=== PATIENT | female | born 1980 | race Caucasian/White ===

== ENCOUNTER 2017-03-24 10:18 | Inpatient (IN) | payer BC ==
[2017-04-03] MEDS ORDERED: OXYTOCIN 10 UNIT/ML 1 ML VIAL IM PRN (06:25)
[2017-04-03] MEDS ORDERED: LIDOCAINE 1% (PF) 10 MG/ML (30 ML SDV) SQ PRN (06:25)
[2017-04-03] MEDS ORDERED: TERBUTALINE 1 MG/ML VIAL SQ PRN (06:25)
[2017-04-03] MEDS ORDERED: METHYLERGONOVINE 0.2 MG/ML 1 ML AMP IM PRN (06:25)
[2017-04-03] MEDS ORDERED: CARBOPROST TROMETHAMINE 250 MCG/ML 1 ML AMP IM PRN (06:25)
[2017-04-03] MEDS: LACTATED RINGERS 1,000 ML IV SCH ×3 (06:42→13:37)
[2017-04-03] MEDS: OXYTOCIN 20 UNITS/1000 ML NS 1,000 ML IV SCH ×2 (06:42→14:41)
[2017-04-03 06:51] LABS: Basophils % (A) 0 %; CH 31.2; CHCM 35.2; Eosinophils # (A) 0.1 k/uL (0-0.7); Eosinophils % (A) 1 %; HCT 37.5 % (34.0-46.0); HDW 2.98; HGB 13.2 gm/dL (11.4-16.0); Luc # (Auto) 0.23; Luc % (Auto) 3; Lymphocytes # (A) 1.7 k/uL (1.0-4.8); Lymphocytes % (A) 20 %; MCH 31.3 pg (25.0-35.0); MCHC 35.1 g/dL (31.0-37.0); MCV 89.1 fL (80.0-100.0); Mean Platelet Volume 8.9; Monocytes # (A) 0.4 k/uL (0-1.0); Monocytes % (A) 5 %; Neutrophils # (A) 6.1 k/uL (1.3-7.7); Neutrophils % (A) 72 %; RBC 4.21 m/uL (3.80-5.40); RDW 14.9 % (11.5-15.5); WBC 8.6 k/uL (3.8-10.6); WBC (Perox) 9.31
[2017-04-03 07:19] VITALS: BMI 28.3
--- NOTE | 2017-04-03 07:37 | P.HPOB ---
History of Present Illness H&P Date: 04/03/17 Is a 40-year-old white female 4 para 10/25/2002 EDC 03/24/2017 at 41-3/7 weeks ' gestation. Reason for induction for postdates with reasonably favorable multiparous cervix. Fetus is been active throughout the . She denies fluid leakage or vaginal bleeding. She is having irregular mild uterine contractions spontaneously. Past surgical history significant for section 2007, low transverse incision. Cholecystectomy, appendectomy. Her graft ALLERGIES none known. Family history significant for prostate cancer. Obstetric history significant for normal spontaneous vaginal deliveries 2, C- section in 2007, low transverse. history blood type is positive, rubella status immune. One-hour Glucola elevated, 3 hour GTT within normal limits. VDRL testing, urine culture , hepatitis B surface antigen, HIV testing all negative. Gonorrhea and chlamydia cultures negative. Current medications vitamins daily. On exam this is a pleasant white female, 5 foot 4 inches, 165 pounds, blood pressure 115/71. The general physical exam is within normal limits. The cervix is 3-4 cm dilated, 60-70% effaced, -2 station, vertex presentation, soft. Artificial amniorrhexis reveals clear fluid. heart rate is in the 140s with frequent accelerations consistent with reactive NST. Irregular mild uterine contractions are noted. Impression: Advanced maternal age, postdates , previous wishing . All signs this morning reassuring. Plan: Oxytocin per hospital protocol. Close maternal and surveillance. Anticipate vaginal after . Past Medical History Past Medical History: No Reported History History of Any Multi-Drug Resistant Organisms: None Reported Past Surgical History: Section Past Anesthesia/Blood Transfusion Reactions: No Reported Reaction Past Psychological History: No Psychological Hx Reported Smoking Status: Never smoker - Past Family History Father Family Medical History: Cancer Medications and Allergies Home Medications Medication Instructions Recorded Confirmed Type Cetirizine HCl [Zyrtec] 10 mg PO DAILY 03/28/17 04/03/17 History Pnv,Calcium 72/Iron/Folic Acid 1 tab PO DAILY 03/28/17 04/03/17 History [ Plus Tablet] Allergies Allergy/AdvReac Type Severity Reaction Status Date / Time No Known Allergies Allergy Verified 04/03/17 06:23 Exam - Vital Signs Vital signs: Vital Signs Temp Pulse Resp BP 04/03/17 06:22 96.7 F L 81 18 115/71 Intake and Output 04/02/17 04/03/17 04/03/17 22:59 06:59 14:59 Other: Weight 74.843 kg Results Result Diagrams: 04/03/17 06:35
[2017-04-03] MEDS ORDERED: SODIUM CHLORIDE 0.9% 100 ML BAG ONE (09:50)
[2017-04-03] MEDS ORDERED: fentaNYL (PF) 50 MCG/ML 5 ML AMP ONE (09:50)
[2017-04-03] MEDS ORDERED: BUPIVACAINE (PF) 0.25% 30 ML VIAL ONE (09:50)
[2017-04-03] MEDS ORDERED: BUPIVACAINE (PF) 0.25% 25 ML, fentaNYL (PF) 200 MCG in SODIUM CHLORIDE 0.9% 71 ML EPIDURAL ONE (10:06)
[2017-04-03] MEDS ORDERED: diphenhydrAMINE 25 MG CAP PO PRN (13:27)
[2017-04-03] MEDS ORDERED: BENZOCAINE/MENTHOL SPRAY 1 GM/SPRAY AEROSOL TOPICAL PRN (13:27)
[2017-04-03] MEDS ORDERED: ZOLPIDEM 5 MG TAB PO PRN (13:27)
[2017-04-03] MEDS ORDERED: HYDROCORTISONE 2.5% RECTAL CREAM 30 GM TUBE RECTAL PRN (13:27)
[2017-04-03] MEDS ORDERED: ACETAMINOPHEN TAB 325 MG TAB PO PRN (13:27)
[2017-04-03] MEDS ORDERED: WITCH HAZEL 1 EACH MED..PAD TOPICAL PRN (13:27)
[2017-04-03] MEDS ORDERED: diphenhydrAMINE 50 MG/ML 1 ML VIAL IVP PRN ×2 (13:27)
[2017-04-03] MEDS ORDERED: LANOLIN CREAM 5 GM TUBE TOPICAL PRN (13:27)
[2017-04-03] MEDS ORDERED: SIMETHICONE 80 MG CHEWABLE PO PRN (13:27)
[2017-04-03] MEDS ORDERED: diphenhydrAMINE 50 MG CAP PO PRN (13:27)
[2017-04-03] MEDS ORDERED: Acetaminophen-Codeine 300-30mg TAB PO PRN (13:27)
[2017-04-03] MEDS ORDERED: diphenhydrAMINE ELIXIR 25 MG/10 ML CUP PO PRN (13:27)
--- NOTE | 2017-04-03 13:27 | P.PROBDLV ---
Vaginal Delivery Note - . Vaginal Delivery Note: This is a 37-year-old white female 4 para 10/25/2002 EDC 03/24/2017 at 41-3/7 weeks' gestation. Patient presented for induction for postdates with favorable cervix. is essentially unremarkable, group B strep cultures negative, blood type O+, rubella status immune. Please see dictated history and physical for details. On admission patient was 3-4 cm dilated. Artificial amniorrhexis revealed clear fluid. Oxytocin was started and titrated per hospital protocol. She progressed well through the first stage of labor. She did have occasional type I decelerations, overall excellent variability noted. Epidural was requested and placed without issue. Patient was judged to be completely dilated at 1254 hrs. and began the second stage of labor at that time. She pushed quite successfully in the dorsal lithotomy position. The perineal body was prepped and draped in usual sterile fashion. Infant's head delivered occiput anterior and she restituted accordingly. With gentle downward traction, the anterior shoulder were infant' s left shoulder did not deliver easily. Therefore exaggerated Whitney maneuver was employed, along with suprapubic pressure per nursing staff. With this, the left or anterior shoulder gently delivered from underneath the pubic symphysis at which time the oropharynx, nasopharynx and external nares were all bulb suctioned on the perineal body. Patient was officially delivered of a liveborn female at 1304 hrs. Umbilical cord was doubly clamped and ligated, she was handed to waiting nurses for evaluation where scores of 9 and 9 at one and 5 minutes respectively were given. weighed 9 lbs. 9 oz. or 4350 g. The placenta delivered spontaneously, it was inspected and noted to be intact with trivascular cord at 1307 hrs. Inspection now of the cervix, vagina, perineum, periurethral and perirectal areas revealed a second-degree perineal laceration. This was repaired in the usual fashion using 3-0 Vicryl suture. All sponge needle and instrument counts are correct at the end of the procedure. Fundus is firm and in the midline, symmetric and 18 week size. Estimated blood loss 350 mL's. Patient and her family are allowed to begin the bonding experience in the LDR.
[2017-04-03] MEDS: SENNOSIDES-DOCUSATE SODIUM 1 EACH TAB PO SCH (19:33)
[2017-04-03] MEDS: IBUPROFEN 600 MG TAB PO PRN (20:23)
[2017-04-03 23:36] VITALS: PULSE 76
[2017-04-04] MEDS: IBUPROFEN 600 MG TAB PO PRN ×2 (01:52→11:45)
--- NOTE | 2017-04-04 07:50 | P.DS ---
Providers Date of admission: 04/03/17 06:10 Expected date of discharge: 04/04/17 Attending physician: Diane Camacho Primary care physician: Freya Rosas [facility] Course: This is a 36-year-old white female 4 para 10/25/2002 EDC 03/24/2017 at 41-3/7 weeks' gestation. Patient presented for induction for postdates with favorable multiparous cervix. Her history is significant for previous section, low transverse incision, choosing . Please see my dictated history and physical for details. Group B strep cultures negative, blood type O positive, rubella status immune. Artificial amniorrhexis revealed clear fluid. She requested and received an epidural. Oxytocin was started and titrated per hospital protocol. She went on to deliver a liveborn female with scores of 9 and 9 at one and 5 minutes respectively. Infant weighed 4350 g, or 9 lbs. 9 oz. There was a spontaneous second-degree midline laceration easily repaired. Estimated blood loss of 350 mL's. There was a mild shoulder dystocia that was alleviated quickly with Whitney maneuver and suprapubic pressure. Please see my dictated delivery note for details. This morning the patient is doing well. She is voiding, ambulating and passing flatus without difficulty. Vital signs are stable and she is afebrile. Fundus is firm and in the midline, symmetric and 18 week size. Extremities are negative for edema. Chest is clear in all arora. Extremities are negative for edema. Breasts are not engorged. Breast-feeding is going well. infant is doing well. Patient is being discharged home later today. She will follow-up with me in the office in 6 weeks. I have reminded her no intercourse, tampons or douching. She will use [id number] ibuprofen products as needed for pain, 200 mg pills, 3 every 6 hours as needed. I have reminded her to call me with any fevers shakes or chills, foul smelling or copious lochia, with the passage of large blood clots, with any pain not alleviated by [id number] products , or indeed with any concerns. Her options for contraception have been reviewed and we will discuss this further in the office. Patient Condition at Discharge: Good Plan - Discharge Summary New Discharge Prescriptions: No Action Pnv,Calcium 72/Iron/Folic Acid [ Plus Tablet] 1 tab PO DAILY Cetirizine HCl [Zyrtec] 10 mg PO DAILY Discharge Medication List Cetirizine HCl [Zyrtec] 10 mg PO DAILY 03/28/17 [History] Pnv,Calcium 72/Iron/Folic Acid [ Plus Tablet] 1 tab PO DAILY 03/28/17 [ History] Follow up Appointment(s)/Referral(s): Diane Camacho MD [STAFF PHYSICIAN] - 6 Weeks Discharge Disposition: HOME SELF-CARE
[2017-04-04] MEDS: SENNOSIDES-DOCUSATE SODIUM 1 EACH TAB PO SCH (09:16)
[2017-04-04 12:34] VITALS: BP 110/61; RESP 20; TEMP 97.6
== END 2017-04-04 14:30 | disposition home or self-care (01) | DRG 775 ==
LOC: 4FBP 04-03 06:10
PROVIDERS: ADMIT Obstetrics & Gynecology; ATTEND Obstetrics & Gynecology
PROC: 10E0XZZ Delivery of Products of Conception, External Approach (ICD-10-PCS; principal; 2017-04-03)
PROC: 0KQM0ZZ Repair Perineum Muscle, Open Approach (ICD-10-PCS; 2017-04-03)
PROC: 3E033VJ Introduction of Other Hormone into Peripheral Vein, Percutaneous Approach (ICD-10-PCS; 2017-04-03)
PROC: 10907ZC Drainage of Amniotic Fluid, Therapeutic from Products of Conception, Via Natural or Artificial Opening (ICD-10-PCS; 2017-04-03)
PROC: 3E0S3NZ Introduction of Analgesics, Hypnotics, Sedatives into Epidural Space, Percutaneous Approach (ICD-10-PCS; 2017-04-03)
DX: O48.0 Post-term pregnancy (principal); N85.8 Other specified noninflammatory disorders of uterus; O70.1 Second degree perineal laceration during delivery; Z37.0 Single live birth; O66.0 Obstructed labor due to shoulder dystocia; O34.211 Maternal care for low transverse scar from previous cesarean delivery; Z90.49 Acquired absence of other specified parts of digestive tract; Z3A.41 41 weeks gestation of pregnancy; Z80.42 Family history of malignant neoplasm of prostate; Z79.899 Other long term (current) drug therapy
CPT/HCPCS: 85025; 86850; 86900; 86901; 88307

== ENCOUNTER 2017-03-28 17:41 | Outpatient (CLI) | payer BC | END 2017-03-28 18:05 | disposition home or self-care (01) | LOC: FBPOP 17:41 | PROVIDERS: ATTEND Obstetrics & Gynecology | DX: O26.93 Pregnancy related conditions, unspecified, third trimester (principal); Z3A.40 40 weeks gestation of pregnancy | CPT/HCPCS: 59025; 99213 ==

== ENCOUNTER → 2019-09-09 | Outpatient (CLI) | payer BC | END | disposition home or self-care (01) | LOC: FBPOP 11:30 | PROVIDERS: ATTEND Obstetrics & Gynecology | DX: Z53.9 Procedure and treatment not carried out, unspecified reason (principal) ==

== ENCOUNTER 2019-09-30 06:00 | Inpatient (IN) | payer BC ==
[2019-09-30] MEDS ORDERED: LIDOCAINE 0.5% (PF) 5 MG/ML (50 ML SDV) SQ PRN (06:18)
[2019-09-30] MEDS ORDERED: METHYLERGONOVINE 0.2 MG/ML 1 ML AMP IM PRN (06:18)
[2019-09-30] MEDS ORDERED: OXYTOCIN 10 UNIT/ML 1 ML VIAL IM PRN (06:18)
[2019-09-30] MEDS ORDERED: TERBUTALINE 1 MG/ML VIAL SQ PRN (06:18)
[2019-09-30] MEDS ORDERED: CARBOPROST TROMETHAMINE 250 MCG/ML 1 ML AMP IM PRN (06:18)
[2019-09-30] MEDS ORDERED: OXYTOCIN 30 UNITS/500 ML NS 30 UNIT in SALINE 1 500ML.BAG IV SCH (06:30)
[2019-09-30 06:34] LABS: Basophils # (A) 0.1 k/uL (0-0.2); Basophils % (A) 1 %; Eosinophils # (A) 0.2 k/uL (0-0.7); Eosinophils % (A) 2 %; HCT 35.9 % (34.0-46.0); HGB 12.1 gm/dL (11.4-16.0); Lymphocytes # (A) 1.6 k/uL (1.0-4.8); Lymphocytes % (A) 15 %; MCH 29.5 pg (25.0-35.0); MCHC 33.6 g/dL (31.0-37.0); MCV 87.8 fL (80.0-100.0); Mean Platelet Volume 9.3; Monocytes # (A) 0.5 k/uL (0-1.0); Monocytes % (A) 5 %; Neutrophils # (A) 8.1 k/uL (1.3-7.7); Neutrophils % (A) 75 %; Platelet Count 199 k/uL (150-450); Poikilocytosis Slight; RBC 4.09 m/uL (3.80-5.40); RDW 13.2 % (11.5-15.5); WBC 10.8 k/uL (3.8-10.6)
[2019-09-30 06:35] VITALS: RESP 16
[2019-09-30] MEDS: LACTATED RINGERS 1,000 ML IV SCH ×2 (06:38→09:21)
--- NOTE | 2019-09-30 07:03 | P.HPOB ---
History of Present Illness H&P Date: 09/30/19 This is a 39-year-old white female 6 para 4014 EDC 10/03/2019 at 39-4/7 weeks' gestation. Patient presents today for induction with favorable multiparous cervix. Fetus is been active throughout the . She denies fluid leakage or vaginal bleeding. Social history is significant for negative tobacco alcohol or drug use. Patient is . Family history significant for prostate cancer. Obstetric history significant for section 2007, vaginal deliveries 3, most recently 2016. Past surgical history appendectomy 2007, to section 2007, cholecystectomy 2009. Current medications vitamins daily. ALLERGIES none known. Past medical history is unremarkable. history blood type is O+, rubella status immune. Hepatitis B surface antigen, HIV testing, urine culture, Pap smear, gonorrhea and chlamydia cultures, group strep cultures all negative. One-hour Glucola 96. On exam this is a pleasant white female who is 5 foot 4 inches, 173 pounds, vital signs are stable and patient is afebrile. The general physical exam is within normal limits. No peripheral edema. Cervix is 4 cm dilated, 70% effaced, -1 station, vertex presentation. Artificial amniorrhexis reveals clear fluid. heart rate is in the 130s with good overall variability. Rare mild uterine contractions are noted. Impression: 39-4/7 weeks intrauterine , here for elective induction of labor with favorable cervix and all signs reassuring. Plan: Close maternal and surveillance. Oxytocin per hospital protocol. Analgesic options have been reviewed with the patient. Anticipate normal spontaneous vaginal delivery, successful . Review of Systems Constitutional: Reports as per HPI Past Medical History Past Medical History: No Reported History History of Any Multi-Drug Resistant Organisms: None Reported Past Surgical History: Appendectomy, Section, Cholecystectomy Past Anesthesia/Blood Transfusion Reactions: No Reported Reaction Past Psychological History: No Psychological Hx Reported Smoking Status: Never smoker Past Alcohol Use History: None Reported Past Drug Use History: None Reported - Past Family History Father Family Medical History: Cancer Medications and Allergies Home Medications Medication Instructions Recorded Confirmed Type Pnv,Calcium 72/Iron/Folic Acid 1 tab PO DAILY 03/28/17 09/30/19 History [ Plus Tablet] Allergies Allergy/AdvReac Type Severity Reaction Status Date / Time No Known Allergies Allergy Verified 09/30/19 06:16 Exam Vital Signs Temp Pulse Resp BP Pulse Ox 09/30/19 06:28 96.4 F L 94 16 122/73 99 Intake and Output 09/29/19 09/29/19 09/30/19 14:59 22:59 06:59 Other: Weight 78.471 kg See dictation under HPI please Results Result Diagrams: 09/30/19 06:21 Abnormal Lab Results - Last 24 Hours (Table) 09/30/19 Range/Units 06:21 WBC 10.8 H (3.8-10.6) k/uL Neutrophils # 8.1 H (1.3-7.7) k/uL Assessment and Plan Assessment: 39-4/7 weeks intrauterine , here for elective induction of labor, all signs reassuring. Plan: Oxytocin per hospital protocol. Close maternal and surveillance. Anticipate normal spontaneous vaginal delivery. Time with Patient: Less than 30
[2019-09-30] MEDS ORDERED: LANOLIN CREAM 5 GM TUBE TOPICAL PRN (12:08)
[2019-09-30] MEDS ORDERED: diphenhydrAMINE 50 MG/ML 1 ML VIAL IVP PRN ×2 (12:08)
[2019-09-30] MEDS ORDERED: diphenhydrAMINE 50 MG CAP PO PRN (12:08)
[2019-09-30] MEDS ORDERED: diphenhydrAMINE 25 MG CAP PO PRN (12:08)
[2019-09-30] MEDS ORDERED: SIMETHICONE 80 MG CHEWABLE PO PRN (12:08)
[2019-09-30] MEDS ORDERED: WITCH HAZEL 1 EACH MED..PAD TOPICAL PRN (12:08)
[2019-09-30] MEDS ORDERED: ZOLPIDEM 5 MG TAB PO PRN (12:08)
[2019-09-30] MEDS ORDERED: BENZOCAINE/MENTHOL SPRAY 1 GM/SPRAY AEROSOL TOPICAL PRN (12:08)
[2019-09-30] MEDS ORDERED: ACETAMINOPHEN TAB 325 MG TAB PO PRN (12:08)
[2019-09-30] MEDS ORDERED: HYDROCORTISONE 2.5% RECTAL CREAM 30 GM TUBE RECTAL PRN (12:08)
--- NOTE | 2019-09-30 12:08 | P.PROBDLV ---
Vaginal Delivery Note - . Vaginal Delivery Note: This is a 39-year-old white female 6 para 4014 EDC 10/03/2019 at 39-4/7 weeks' gestation. Patient presented for induction with favorable multiparous cervix. is unremarkable, group B strep cultures negative, blood type O positive. Please see history and physical for details. Artificial amniorrhexis revealed clear fluid. Oxytocin was started and titrated per hospital protocol. Patient became uncomfortable and requested epidural, this was placed without difficulty per the anesthesia staff. Heart tones were reassuring throughout the entire first and second stages of labor. Patient was judged to be completely dilated at 1122 hours. Perineal body was prepped and draped in usual sterile fashion. With excellent expulsive efforts the infant's head delivered occiput anterior, there was an immediate "turtle sign" noted. For this reason, an exaggerated Whitney maneuver was employed along with suprapubic pressure. With gentle downward traction, the left or anterior shoulder still did not deliver. For this reason, delivery of the posterior shoulder was accomplished. Patient officially delivered a liveborn male infant at 1141 hours. Umbilical cord was doubly clamped and ligated, he was handed to waiting nurses for evaluation where scores of 8 and 9 at one and 5 minutes respectively were given. Placenta delivered spontaneously, it was inspected and noted to be intact with trivascular cord at 1145 hours. Inspection of the cervix, vagina, perineum, periurethral, and perirectal areas revealed a second-degree laceration. This was repaired in the usual fashion using 3-0 Vicryl suture for excellent reapproximation. Fundus is firm and in the midline, symmetric and 18 week size upon completion of delivery. Total estimate a blood loss 300 mL's. Infant weighed 9 lbs. 9 oz. or 4340 g. They are requesting circumcision further son.
[2019-09-30] MEDS ORDERED: OXYTOCIN 20 UNITS/1000 ML NS 1,000 ML IV SCH (12:15)
[2019-09-30] MEDS: IBUPROFEN 600 MG TAB PO PRN ×2 (12:20→23:05)
[2019-09-30] MEDS: SENNOSIDES-DOCUSATE SODIUM 1 EACH TAB PO SCH (20:27)
[2019-10-01 06:21] LABS: Basophils # (A) 0.1 k/uL (0-0.2); Basophils % (A) 1 %; Eosinophils # (A) 0.2 k/uL (0-0.7); Eosinophils % (A) 2 %; HCT 32.6 % (34.0-46.0); HGB 10.7 gm/dL (11.4-16.0); Lymphocytes # (A) 1.4 k/uL (1.0-4.8); Lymphocytes % (A) 13 %; MCH 29.1 pg (25.0-35.0); MCHC 32.7 g/dL (31.0-37.0); Mean Platelet Volume 9.5; Monocytes # (A) 0.4 k/uL (0-1.0); Monocytes % (A) 4 %; Neutrophils # (A) 8.9 k/uL (1.3-7.7); Neutrophils % (A) 79 %; Platelet Count 160 k/uL (150-450); Poikilocytosis Slight; RBC 3.66 m/uL (3.80-5.40); RDW 13.4 % (11.5-15.5); WBC 11.3 k/uL (3.8-10.6)
--- NOTE | 2019-10-01 07:50 | P.DS ---
Providers Date of admission: 09/30/19 06:09 Expected date of discharge: 10/01/19 Attending physician: Diane Camacho Primary care physician: Stated None Hospital Course: This is a 39-year-old white female 6 para 4014 EDC 10/03/2019 at 39-4/7 weeks' gestation. Patient presented for induction with favorable, multiparous cervix. unremarkable, rubella status immune, group B strep cultures negative, blood type O positive. Please see dictated history and physical for details. Patient was admitted, artificial amniorrhexis revealed clear fluid. Oxytocin augmentation was started. Epidural was placed per her request. She went on to deliver a liveborn male infant with scores of 8 and 9 at one and 5 minutes respectively. weighed 9 lbs. 9 oz., 4340 g. There was a mild shoulder dystocia encountered, please see my dictated delivery note for details. This morning the patient and her baby are both doing well. Circumcision has been performed. Patient is voiding, ambulating, passing flatus without diffi culty. Vital signs are stable and she is afebrile. Fundus is firm and in the midline, symmetric and 18 week size. Extremities are negative for edema. Perineal body is clean and dry, pain is well tolerated. Patient is being discharged home in excellent condition. She will follow-up with me in the office in 6 weeks. I have reminded her no intercourse, tampons or douching. She will use [id number] Advil or Aleve, or Motrin as needed for pain. She will call with any fevers shakes or chills, foul smelling or copious lochia, with the passage of large blood clots, with any pain not yojana viated by [id number] products, or indeed with any concerns. Patient Condition at Discharge: Good Plan - Discharge Summary New Discharge Prescriptions: No Action Pnv,Calcium 72/Iron/Folic Acid [ Plus Tablet] 1 tab PO DAILY Discharge Medication List Pnv,Calcium 72/Iron/Folic Acid [ Plus Tablet] 1 tab PO DAILY 03/28/17 [History] Follow up Appointment(s)/Referral(s): Diane Camacho MD [STAFF PHYSICIAN] - 6 Weeks Discharge Disposition: HOME SELF-CARE
[2019-10-01] MEDS: IBUPROFEN 600 MG TAB PO PRN (08:18)
[2019-10-01] MEDS: SENNOSIDES-DOCUSATE SODIUM 1 EACH TAB PO SCH (08:19)
[2019-10-01] MEDS ORDERED: ROPIVACAINE 100 MG, fentaNYL (PF) 200 MCG in SODIUM CHLORIDE 0.9% 76 ML EPIDURAL ONE (08:33)
[2019-10-01 08:49] VITALS: BP 118/66; PULSE 95; TEMP 97.9
== END 2019-10-01 12:30 | disposition home or self-care (01) | DRG 807 ==
LOC: 4FBP 06:09
PROVIDERS: ADMIT Obstetrics & Gynecology; ATTEND Obstetrics & Gynecology
PROC: 10E0XZZ Delivery of Products of Conception, External Approach (ICD-10-PCS; principal; 2019-09-30)
PROC: 0KQM0ZZ Repair Perineum Muscle, Open Approach (ICD-10-PCS; 2019-09-30)
PROC: 3E033VJ Introduction of Other Hormone into Peripheral Vein, Percutaneous Approach (ICD-10-PCS; 2019-09-30)
PROC: 10907ZC Drainage of Amniotic Fluid, Therapeutic from Products of Conception, Via Natural or Artificial Opening (ICD-10-PCS; 2019-09-30)
PROC: 00HU33Z Insertion of Infusion Device into Spinal Canal, Percutaneous Approach (ICD-10-PCS; 2019-09-30)
PROC: 3E0R3BZ Introduction of Anesthetic Agent into Spinal Canal, Percutaneous Approach (ICD-10-PCS; 2019-09-30)
DX: O34.211 Maternal care for low transverse scar from previous cesarean delivery (principal); Z37.0 Single live birth; O66.0 Obstructed labor due to shoulder dystocia; O70.1 Second degree perineal laceration during delivery; Z3A.39 39 weeks gestation of pregnancy; Z79.899 Other long term (current) drug therapy; Z90.49 Acquired absence of other specified parts of digestive tract; Z80.42 Family history of malignant neoplasm of prostate
CPT/HCPCS: 85025; 86850; 86900; 86901

== ENCOUNTER 2021-08-31 05:56 | Inpatient (IN) | payer BC ==
[2021-08-31] MEDS ORDERED: TERBUTALINE 1 MG/ML VIAL SQ PRN (06:11)
[2021-08-31] MEDS ORDERED: OXYTOCIN 10 UNIT/ML 1 ML VIAL IM PRN (06:11)
[2021-08-31] MEDS ORDERED: CARBOPROST TROMETHAMINE 250 MCG/ML 1 ML AMP IM PRN (06:11)
[2021-08-31] MEDS ORDERED: METHYLERGONOVINE 0.2 MG/ML 1 ML AMP IM PRN (06:11)
[2021-08-31] MEDS ORDERED: LIDOCAINE 0.5% (PF) 5 MG/ML (50 ML SDV) SQ PRN (06:11)
[2021-08-31] MEDS: LACTATED RINGERS 1,000 ML IV SCH ×2 (06:39→09:18)
[2021-08-31] MEDS: OXYTOCIN 30 UNITS/500 ML NS 30 UNIT in SALINE 1 500ML.BAG IV SCH ×3 (06:40→12:46)
[2021-08-31 06:42] LABS: Basophils # (A) 0.1 k/uL (0-0.2); Basophils % (A) 1 %; Eosinophils # (A) 0.2 k/uL (0-0.7); Eosinophils % (A) 2 %; HCT 34.8 % (34.0-46.0); HGB 11.9 gm/dL (11.4-16.0); Lymphocytes # (A) 1.6 k/uL (1.0-4.8); Lymphocytes % (A) 15 %; MCH 31.9 pg (25.0-35.0); MCHC 34.2 g/dL (31.0-37.0); MCV 93.1 fL (80.0-100.0); Mean Platelet Volume 8.4; Monocytes # (A) 0.5 k/uL (0-1.0); Monocytes % (A) 5 %; Neutrophils # (A) 8.1 k/uL (1.3-7.7); Neutrophils % (A) 76 %; Platelet Count 272 k/uL (150-450); Poikilocytosis Slight; RBC 3.74 m/uL (3.80-5.40); RDW 13.5 % (11.5-15.5); WBC 10.7 k/uL (3.8-10.6)
--- NOTE | 2021-08-31 08:06 | P.HPOB ---
History of Present Illness H&P Date: 08/31/21 Chief Complaint: She'll of labor with favorable multiparous cervix This is a 41-year-old female 7 para 5015 EDC 09/07/2021 at 39 weeks gestation. Patient presents with estimated weight greater than 97th percentile, history of macrosomia, history of shoulder dystocia, history of previous section and successful . Planning this morning. She is having mild uterine contractions, denies fluid leakage or vaginal bleeding. Past medical history is unremarkable. Past surgical history section 2007, cholecystectomy 2009, appendectomy 2007. Current medications baby aspirin daily, vitamin daily. ALLERGIES none known. Family history significant for prostate cancer. Obstetric history significant for vaginal delivery of 8 lbs. 8 oz. , 8 lbs. 5 oz. , section of 6 lbs. 5 oz. for vaginal bleeding and complete placenta previa. at 42 weeks' 9 lbs. 9 oz. infant as well as at 39 weeks' 9 lbs. 9 oz. infant. Social history patient is , she is never been a smoker, she denies alcohol or drug use. Obstetric history blood type is O+, rubella status immune. VDRL testing, urine culture, hepatitis B surface antigen, HIV testing, gonorrhea and chlamydia cultures, group B strep cultures all negative. One-hour Glucola 97. On exam patient is 5 foot 4 inches, 171 pounds, blood pressure 115/85. General physical exam is within normal limits. Extremities reveal no edema. heart rate is consistent with reactive NST. Cervix is 4 cm dilated, 60-70% effaced, -2 station, vertex presentation. Artificial amniorrhexis reveals clear fluid. Impression: Advanced maternal age, 39 week , history of macrosomia with sonographic evidence of the same, previous section planning . All signs reassuring. Plan: Oxytocin per hospital protocol. Analgesic options reviewed. Close maternal and surveillance. Anticipate normal spontaneous vaginal delivery. Review of Systems Constitutional: Reports as per HPI Past Medical History Past Medical History: No Reported History History of Any Multi-Drug Resistant Organisms: None Reported Past Surgical History: Appendectomy, Section, Cholecystectomy Past Anesthesia/Blood Transfusion Reactions: No Reported Reaction Past Psychological History: No Psychological Hx Reported Smoking Status: Never smoker Past Alcohol Use History: None Reported Past Drug Use History: None Reported - Past Family History Father Family Medical History: Cancer Medications and Allergies Home Medications Medication Instructions Recorded Confirmed Type Pnv,Calcium 72/Iron/Folic Acid 1 tab PO DAILY 03/28/17 08/31/21 History [ Plus Tablet] Aspirin 1 tab PO DAILY 08/31/21 08/31/21 History Allergies Allergy/AdvReac Type Severity Reaction Status Date / Time No Known Allergies Allergy Verified 08/31/21 06:07 Exam Vital Signs Temp Pulse Resp BP Pulse Ox 08/31/21 06:20 96.6 F L 104 H 16 115/85 98 Intake and Output 08/30/21 08/31/21 08/31/21 22:59 06:59 14:59 Intake Total 1.5 Balance 1.5 Intake: Intake, IV Titration 1.5 Amount Oxytocin 30 Units/500 ml 1.5 Ns 30 unit In Saline 1 500ml.bag @ Per Protocol IV .Q0M EDGARDO Rx#:[id number] Other: Weight 77.564 kg See dictation under HPI please Results Result Diagrams: 08/31/21 06:09 Abnormal Lab Results - Last 24 Hours (Table) 08/31/21 Range/Units 06:09 WBC 10.7 H (3.8-10.6) k/uL RBC 3.74 L (3.80-5.40) m/uL Neutrophils # 8.1 H (1.3-7.7) k/uL Assessment and Plan Assessment: 39 week intrauterine , suspected macrosomia, advanced maternal age, history of section planning . All signs reassuring. Plan: Oxytocin per hospital protocol. Close maternal and surveillance. Analgesic options reviewed. Anticipate normal spontaneous vaginal delivery. Time with Patient: Less than 30
[2021-08-31] MEDS ORDERED: ROPIVACAINE 5MG/ML 20ML VIAL ONE (09:40)
[2021-08-31] MEDS ORDERED: SODIUM CHLORIDE 0.9% 100 ML BAG ONE (09:40)
[2021-08-31] MEDS ORDERED: fentaNYL (PF) 50 MCG/ML 5 ML AMP ONE (09:40)
[2021-08-31] MEDS ORDERED: LANOLIN CREAM 5 GM TUBE TOPICAL PRN (12:13)
[2021-08-31] MEDS ORDERED: ZOLPIDEM 5 MG TAB PO PRN (12:13)
[2021-08-31] MEDS ORDERED: BENZOCAINE/MENTHOL SPRAY 1 GM/SPRAY AEROSOL TOPICAL PRN (12:13)
[2021-08-31] MEDS ORDERED: HYDROCORTISONE 2.5% RECTAL CREAM 30 GM TUBE RECTAL PRN (12:13)
[2021-08-31] MEDS ORDERED: SIMETHICONE 80 MG CHEWABLE PO PRN (12:13)
[2021-08-31] MEDS ORDERED: diphenhydrAMINE 50 MG/ML 1 ML VIAL IVP PRN ×2 (12:13)
[2021-08-31] MEDS ORDERED: diphenhydrAMINE 25 MG CAP PO PRN (12:13)
[2021-08-31] MEDS ORDERED: diphenhydrAMINE 50 MG CAP PO PRN (12:13)
--- NOTE | 2021-08-31 12:13 | P.PROBDLV ---
Vaginal Delivery Note - . Vaginal Delivery Note: This is a 41-year-old white female 7 para 5015 [facility] 09/07/2021 at 39 weeks gestation. Patient presented today with a favorable multiparous cervix for induction of labor with a history of macrosomic infants, planning . Please see my dictated history and physical for details. Artificial amniorrhexis revealed clear fluid. Oxytocin was started and titrated. Epidural was placed per her request. She progressed well through the first stage of labor was judged to be completely dilated at 1125 hours. Perineal body was prepped and draped in usual sterile fashion. With excellent maternal efforts the infant's head delivered occiput anterior and he restituted accordingly. There was a nuchal cord 1 that was reduced. The oropharynx, nasopharynx, and external nares were all bulb suctioned. The left or anterior shoulder was easily delivered from underneath the pubic symphysis. Patient was officially delivered of a liveborn male infant at 1152 hours. Umbilical cord was doubly clamped and ligated, he was handed to waiting nurses for evaluation where scores of 8 and 9 at one and 5 minutes respectively were given. weight 8 lbs. 3 oz. or 3725 g. The placenta delivered spontaneously with active management, it was inspected and noted to be intact with trivascular cord. Uterus is then massaged. Careful inspection of the cervix, vagina, perineum, periurethral, and perirectal areas revealed a small first-degree laceration easily repaired with Rapide suture. All sponge needle and enhancement counts are correct. Patient is requesting circumcision for her son. Total estimated blood loss 200 mL's.
[2021-08-31 16:07] VITALS: RESP 16
[2021-08-31] MEDS ORDERED: ACETAMINOPHEN TAB 500 MG TAB PO PRN (16:18)
[2021-08-31] MEDS: IBUPROFEN 600 MG TAB PO PRN ×2 (16:26→23:28)
[2021-09-01 03:31] VITALS: TEMP 97.8
[2021-09-01] MEDS: LACTATED RINGERS 1,000 ML IV SCH (03:32)
[2021-09-01] MEDS: SENNOSIDES-DOCUSATE SODIUM 1 EACH TAB PO SCH ×2 (03:32→07:16)
[2021-09-01] MEDS: IBUPROFEN 600 MG TAB PO PRN (07:16)
[2021-09-01 07:44] LABS: Basophils # (A) 0.1 k/uL (0-0.2); Basophils % (A) 0 %; Eosinophils # (A) 0.2 k/uL (0-0.7); Eosinophils % (A) 1 %; HCT 39.1 % (34.0-46.0); HGB 12.9 gm/dL (11.4-16.0); Lymphocytes # (A) 1.5 k/uL (1.0-4.8); Lymphocytes % (A) 12 %; MCH 31.4 pg (25.0-35.0); MCV 95.1 fL (80.0-100.0); Mean Platelet Volume 8.6; Monocytes # (A) 0.4 k/uL (0-1.0); Monocytes % (A) 3 %; Neutrophils # (A) 10.2 k/uL (1.3-7.7); Neutrophils % (A) 81 %; Platelet Count 270 k/uL (150-450); Poikilocytosis Slight; RBC 4.11 m/uL (3.80-5.40); RDW 14.1 % (11.5-15.5); WBC 12.6 k/uL (3.8-10.6)
--- NOTE | 2021-09-01 07:51 | P.DS ---
Providers Date of admission: 08/31/21 05:56 Expected date of discharge: 09/01/21 Attending physician: Diane Camacho Primary care physician: [facility] Course: This is a 41-year-old white female 7 para 5015 EDC 09/07/2021 at 39 weeks gestation. Patient presented for induction with favorable multiparous cervix. Group B strep cultures negative, blood type O positive, rubella status immune. Please see dictated history and physical for details. Artificial amniorrhexis revealed clear fluid. Oxytocin was started and titrated. Epidural was placed per her request. She went on to deliver vaginally a liveborn male with scores of 8 and 9 at one and 5 minutes respectively. There was a nuchal cord 1 reduced. A small first-degree perineal laceration was repaired. Estimate a blood loss 200 mL's. Infant weight 8 lbs. 3 oz. or 3725 g. Please see dictated delivery note for details. This morning the patient is doing well. She is voiding, inability, passing flatus without difficulty. Vital signs are stable and she is afebrile. Fundus is firm and in the midline, symmetric and 18 week size. Extremities are negative for edema. is doing well. Circumcision has been performed. Patient is judged to be in very good condition for discharge home. She is reminded no intercourse, tampons or douching. She will use [id number] Advil or Aleve, or Motrin as needed for pain. She will call with any fevers shakes or chills, foul smelling or copious lochia, with the passage of large blood clots, with any pain not alleviated by [id number] products, or indeed with any concerns. will follow-up with electrical assembler as per recommendations. Assessment: Doing well first day Patient Condition at Discharge: Good Plan - Discharge Summary Discharge Rx Participant: No New Discharge Prescriptions: No Action Pnv,Calcium 72/Iron/Folic Acid [ Plus Tablet] 1 tab PO DAILY Aspirin 1 tab PO DAILY Discharge Medication List Pnv,Calcium 72/Iron/Folic Acid [ Plus Tablet] 1 tab PO DAILY 03/28/17 [History] Aspirin 1 tab PO DAILY 08/31/21 [History] Follow up Appointment(s)/Referral(s): Diane Camacho MD [STAFF PHYSICIAN] - 6 Weeks Discharge Disposition: HOME SELF-CARE
[2021-09-01 08:27] VITALS: BP 112/72; PULSE 98
== END 2021-09-01 14:30 | disposition home or self-care (01) | DRG 807 ==
LOC: 4FBP 05:56
PROVIDERS: ADMIT Obstetrics & Gynecology; ATTEND Obstetrics & Gynecology
PROC: 10E0XZZ Delivery of Products of Conception, External Approach (ICD-10-PCS; principal; 2021-08-31)
PROC: 0HQ9XZZ Repair Perineum Skin, External Approach (ICD-10-PCS; 2021-08-31)
PROC: 3E033VJ Introduction of Other Hormone into Peripheral Vein, Percutaneous Approach (ICD-10-PCS; 2021-08-31)
PROC: 10907ZC Drainage of Amniotic Fluid, Therapeutic from Products of Conception, Via Natural or Artificial Opening (ICD-10-PCS; 2021-08-31)
PROC: 4A0HXCZ Measurement of Products of Conception, Cardiac Rate, External Approach (ICD-10-PCS; 2021-08-31)
DX: O34.219 Maternal care for unspecified type scar from previous cesarean delivery (principal); Z37.0 Single live birth; O36.63X0 Maternal care for excessive fetal growth, third trimester, not applicable or unspecified; O69.81X0 Labor and delivery complicated by cord around neck, without compression, not applicable or unspecified; O70.0 First degree perineal laceration during delivery; Z3A.39 39 weeks gestation of pregnancy; Z79.82 Long term (current) use of aspirin; Z90.49 Acquired absence of other specified parts of digestive tract
CPT/HCPCS: 85025; 86850; 86900; 86901